=== PATIENT | male | born 2000 | race Two or more races ===

== ENCOUNTER 2021-08-20 10:36 | Emergency (ER) | payer MEDICAID, OTHER ==
[~2021-08-20] VITALS: Ht 177.8 cm; Wt 56.7 kg
[2021-08-20 11:13] VITALS: BP 148/85
[2021-08-20] MEDS ORDERED: DICYCLOMINE HCL 10 MG CAP PO ONE (11:15)
[2021-08-20] MEDS ORDERED: LOPERAMIDE HCL 2 MG CAP/TAB PO ONE (11:15)
== END 2021-08-20 11:37 | disposition home or self-care (01) ==
LOC: ER 10:36
DX: K52.9 Noninfective gastroenteritis and colitis, unspecified (principal)
CPT/HCPCS: 99283; J0500

== ENCOUNTER 2022-12-01 11:47 | Emergency (ER) | payer MEDICAID ==
[~2022-12-01] VITALS: Ht 152.4 cm; Wt 55.4 kg
[2022-12-01 13:18] VITALS: BP 128/80
[2022-12-01] MEDS ORDERED: NAPR-746 PO (14:11)
== END 2022-12-01 14:18 | disposition home or self-care (01) ==
LOC: ER 11:47
DX: S90.31XA Contusion of right foot, initial encounter (principal); F12.10 Cannabis abuse, uncomplicated; X58.XXXA Exposure to other specified factors, initial encounter; Y93.89 Activity, other specified; Y92.89 Other specified places as the place of occurrence of the external cause; Y99.8 Other external cause status
CPT/HCPCS: 73630